=== PATIENT | female | born 1980 | race Caucasian/White ===

== ENCOUNTER 2024-08-20 18:20 | Emergency (ER) | payer MEDICAID, SELFPAY ==
[2024-08-20 18:21] VITALS: BP 129/91; PULSE 115; RESP 18; TEMP 37.3; O2SAT 96; BMI 23.5
--- NOTE | 2024-08-20 18:57 | ED.VIS.FEGU ---
HPI HPI - Female History of Present Illness Chief Complaint: Flank Pain PFSH PFSH Home Medications ?Medication ?Instructions ?Recorded ?Last Taken ?Type Saccharomyces boulardii PO 08/20/24 Unknown History [id number] carb-vit K 1 tab PO DAILY 08/20/24 Unknown History 18 mg iron-400 mcg-500 mg tablet (Women's Daily Formula) sulfamethoxazole 800 1 tab PO BID #14 tabs 08/20/24 Unknown Rx mg-trimethoprim 160 mg tablet (Bactrim DS) Allergy/AdvReac Type Severity Reaction Status Date / Time latex Allergy Itching Verified 08/20/24 18:21 Social History Smoking Status: Never smoker EXAM Physical Exam Const Vital Signs: 08/20/24 18:21 08/20/24 20:21 08/20/24 21:37 Temperature 99.1 F 99 F Temperature Source Oral Pulse Rate 115 H 83 82 Respiratory Rate 18 17 16 Blood Pressure 129/91 H 139/87 H 163/89 H Blood Pressure Mean 103 104 113 Pulse Ox 96 98 97 Oxygen Delivery Method Room Air Room Air MDM [facility] MDM Narrative Medical decision making narrative: HISTORY OF PRESENT ILLNESS: Chief complaint: Flank pain 43-year-old female presents with concern for left-sided flank pain that started Sunday. Notes she is on doxycycline and Azo from her prior infectious issue. Noted a temperature today of 103. Denies falls or trauma. Notes increased frequency of urination physic she has UTI. Denies history of kidney stones. Denies failure. History of connective tissue disorders or aneurysms REVIEW OF SYSTEMS: Pertinent positives: Flank pain, nausea, frequency Pertinent negatives: Vomiting PHYSICAL EXAM: Nursing triage notes reviewed, Vital signs reviewed Constitutional: please see mdm Lungs: Clear to auscultation, No wheezing or rales. No increased work of breathing, no conversational dyspnea, no accessory muscle use, no nasal flaring. No respiratory distress noted Heart: Regular rate and rhythm, No murmurs, No rubs and No gallops, 2+ distal pulses (radial, femoral, posterior tibial) in all extremities Abdomen: Soft, there is no tenderness, rigidity, rebound or guarding, no obvious peritoneal signs, no palpable pulsatile abdominal masses, no auscultated abdominal bruit : Left CVAT Extremities: No edema Skin: No rash or lesions noted MEDICAL DECISION MAKING: Chief Complaint: please see HPI External records reviewed: Reviewed prior imaging studies Factors affecting care: none Social determinants of health: none History obtained from others: none Consults: none [facility] Narrative: The patient was initially tachycardic otherwise afebrile saturating well on room air. Exam without left CVA tenderness. No signs of trauma. I considered the following differential diagnosis: Pyelonephritis, nephrolithiasis, AAA I obtained a broad lab and imaging workup to further elucidate etiology of patient's complaints I initially treated the patient with 1 L normal saline, 4 2 mg IV morphine, 4 mg IV Zofran ALL IMAGES (IF OBTAINED) HAVE BEEN PERSONALLY REVIEWED AND INTERPRETED BY MYSELF. CT scan abdomen pelvis showed no evidence of obvious AAA, nephrolithiasis CBC without leukocytosis, severe anemia, no thrombocytopenia. BMP without evidence of significant electrolyte abnormalities, no anion gap, no acute kidney injury. Urinalysis with evidence of urinary inflammation Urine culture pending. Patient's history and physical exam most consistent with likely pyelonephritis. Will send urine for culture and start the patient on Bactrim. On reevaluation patient heart rate improved from 115-83. Patient tolerated Bactrim here. The patient and/or family, caregivers express understanding. The patient and/or family, caregivers agrees with the plan. Shared decision making: I will have a discussion with the patient and or visitors regarding risk/benefits of further testing or admission. They will be made aware of of the risk/benefits inherent in this decision they will be given the opportunity to voice understanding. Total critical care time today provided was at least 0 minutes. This excludes separately billable procedures. Critical care time (if documented) is secondary to the patient having high probability of clinically significant/life threatening deterioration in the patient's condition which required my urgent intervention. Impression: 1. Acute flank pain 2. Acute pyelonephritis Dispo: Discharge home This note was generated with [employer] dictation software. It may contain incorrect words, spelling, and punctuation that were not noted in review of the chart prior to signing. Lab Data Labs: Laboratory Results - last 24 hr 08/20/24 08/20/24 18:45 19:20 WBC 9.5 RBC 4.25 Hgb 13.4 Hct 39.3 MCV 92.5 MCH 31.5 MCHC 34.1 RDW Std Deviation 42.2 RDW Coeff of Jael 12.5 Plt Count 270 MPV 9.6 Immature Gran % (Auto) 0.200 Neut % (Auto) 82.5 H Lymph % (Auto) 7.9 L Cobb % (Auto) 7.9 Eos % (Auto) 1.1 Baso % (Auto) 0.4 Absolute Neuts (auto) 7.8 H Absolute Lymphs (auto) 0.75 L Nucleated RBC % 0 Sodium 133 Potassium 3.5 Chloride 99 Carbon Dioxide 21.3 Anion Gap 13 BUN 10 Creatinine 0.73 Estim Creat Clear Calc 102.31 Est GFR (MDRD) Non-Af 107 BUN/Creatinine Ratio 14.2 Glucose 140 H Calcium 9.5 Urine Color Yellow Urine Clarity Cloudy Urine pH 6.0 Ur Specific Surveyor 1.020 Urine Protein 100 H Urine Glucose (UA) Normal Urine Ketones Negative Urine Occult Blood 25 H Urine Nitrite Negative Urine Bilirubin 1 H Urine Urobilinogen 1 H Ur Leukocyte Esterase 500 H Urine RBC 5-10 SEEN Urine WBC 25-50 SEEN Ur Squamous Epith Cells 10-25 SEEN Urine Bacteria 1+ Urine Mucus 2+ Urine Yeast RARE Radiography Diagnostic Testing: Clinical Impression(s) from Imaging Studies Abdomen/Pelvis CT 08/20/24 19:35 IMPRESSION: 12 mm right inferior pole calculus without hydronephrosis. Innumerable bilateral renal simple cysts and proteinaceous/hemorrhagic cysts, more so on the left. Several bilobar hepatic cysts. [facility] Triage Chief Complaint: Flank Pain ED Provider: Abdoul Lynch Dx/Rx/DC Orders Instructions: ED Pyelonephritis, Female (Adult) Prescriptions: New sulfamethoxazole-trimethoprim [Bactrim DS] 800-160 mg tablet 1 tab PO BID Qty: 14 0RF No Action Women's Daily Formula 18 mg iron-400 mcg-500 mg tablet 1 tab PO DAILY Saccharomyces boulardii [Daily Probiotic (S. boulardii)] PO Primary Care Provider: Care Physician,Liliane Primary Referrals: William Lopez MD [Med Staff - Critical Care Rn] - Activity Restrictions/Additional Instructions: Thank you for trusting us with your care today! Your labs images are consistent with likely UTI/kidney infection. Your CT scan did not show evidence of a kidney stone, vascular emergency or other intra-abdominal concerns. It did show known kidney and liver cysts. These are stable and are likely not causing your symptoms. Please take Tylenol (2 pills, 650 mg), ibuprofen (2 pills, 400 mg) every 6 hours as needed for pain and fever control. Please return to the emergency department if your symptoms change or worsen. Please follow with your primary care physician for further outpatient evaluation and management. Print Language: Yoruba Disposition Disposition: Home, Self Care Discharge Date/Time: 08/20/24 21:38
[2024-08-20] MEDS: Morphine 2 MG/ML Syringe IV (19:26)
[2024-08-20] MEDS: 0.9% Normal Saline (1000mL) 1,000 ML 999 ML IV (19:26)
[2024-08-20] MEDS: Ondansetron 4 MG/2 ML Vial IV (19:26)
--- NOTE | 2024-08-20 19:35 | CT_ITS ---
PROCEDURE: ABDOMEN/PELVIS WITHOUT CONT 08/20/2024 REASON FOR EXAM: KIDNEY STONE, LEFT FLANK PAIN TECHNIQUE: Abdomen and pelvis CT without intravenous contrast. Noncontrast technique limits evaluation of the abdominal and pelvic viscera. Coronal and Sagittal reconstruction series were provided. One or more dose reduction techniques were used (e.g., Automated exposure control, adjustment of the mA and/or kV according to patient size, use of iterative reconstruction technique). PATIENT PREPARATION: Per protocol ORAL CONTRAST TYPE: None. AMOUNT: mL COMPARISON: None FINDINGS: Lung bases: Unremarkable Liver: Innumerable bilobar simple cysts. Gallbladder: No ductal dilation. Gallbladder is unremarkable. Spleen: Normal size. Pancreas: Normal size. No surrounding inflammation. Adrenals: Unremarkable. Kidneys: Qoke-bgmsoec-zszn-right several simple and hemorrhagic/proteinaceous cysts. There is near complete replacement of the left renal parenchyma by several cysts. 12 mm right inferior pole calculus, without hydronephrosis. Bladder: Unremarkable. Reproductive Organs: No pelvic mass. Bowel: Stomach is unremarkable. No bowel dilation or wall thickening. Moderate colonic stool. Appendix: Appendix is normal. Lymph nodes: Unremarkable. Vasculature: The abdominal aorta and IVC contours are normal. Noncontrast technique limits evaluation. Peritoneum / Retroperitoneum: No ascites. No pneumoperitoneum. Bones: Unremarkable. Soft tissue: No focal soft tissue abnormality. CT/Abdomen/Pelvis without Cont IMPRESSION: 12 mm right inferior pole calculus without hydronephrosis. Innumerable bilater al renal simple cysts and proteinaceous/hemorrhagic cysts, more so on the left. Several bilobar hepatic cysts. Reading Location: [facility]
[2024-08-20 19:41] LABS: Absolute Lymphocyte Count 0.75 X10^3/uL (0.83-4.51); Absolute Neutrophil Count 7.8 X10^3/uL (2.0-7.7); Basophil# 0.04 X10^3/uL; Basophil% 0.4 % (0-1); Eosinophils% 1.1 % (0-5); Hematocrit 39.3 % (37-47); Hemoglobin 13.4 g/dL (12.0-15.0); Lymphocyte # 0.75 X10^3/ul (0.83-4.51); Lymphocyte % 7.9 % (19-41); Mean Corp Hgb Conc 34.1 g/dL (32-36); Mean Corpuscular Hgb 31.5 pg (27.0-32.0); Mean Corpuscular Volume 92.5 fL (81-99); Mean Platelet Vol. 9.6 fl (6.2-12.0); Monocyte# 0.75 X10^3/uL; Monocyte% 7.9 % (0-10); NRBC Flagged by Analyzer 0 % (0-5); Neutrophil # 7.79 X10^3/uL (2.7-7.7); Neutrophil % 82.5 % (47-70); Platelet Count 270 K/mm3 (150-450); RBC Distribution Width CV 12.5 % (11.6-14.6); RBC Distribution Width SD 42.2 fl (35.1-43.9); Red Blood Count 4.25 M/mm3 (4.2-5.4); White Blood Count 9.5 K/mm3 (4.4-11.0)
[2024-08-20 19:43] LABS: Color, Urine Yellow (Yellow); Glucose, Dipstick Normal (Normal); Ketone-Dipstick Negative (Negative); Leukocyte Esterase-Dipstick 500 /ul (Negative); Nitrite-Dipstick Negative (Negative); Occult Blood-Urine 25 /ul (Negative); Protein-Dipstick 100 mg/dl (Negative); Urine Clarity Cloudy (Clear); Urine Urobilinogen 1 mg/dl (Normal)
[2024-08-20 19:46] LABS: Urine Bilirubin Dipstick 1 mg/dL (Negative)
[2024-08-20 20:01] LABS: Anion Gap 13 (5-15); BUN 10 mg/dL (4-19); BUN/Creat Ratio 14.2 RATIO (10-20); Calcium,Total 9.5 mg/dL (7.6-11.0); Carbon Dioxide 21.3 mmol/L (21.0-32.0); Chloride 99 mmol/L (98-108); Creatinine, Serum 0.73 mg/dL (0.70-1.20); EST Glomerular Filtration Rate 107 (>60); Estimated Creatinine Clearance 102.31 ml/min (50-250); Glucose 140 mg/dL (70-99); Potassium 3.5 mmol/L (3.3-5.1); Sodium Level 133 mmol/L (133-145)
[2024-08-20 20:21] VITALS: BP 139/87; PULSE 83; RESP 17; O2SAT 98
[2024-08-20 20:29] LABS: White Blood Cells 25-50 SEEN /hpf (0-5)
[2024-08-20 20:30] LABS: Red Blood Cells-Urine 5-10 SEEN /hpf (0-5); Squamous Epithelial Cells - UA 10-25 SEEN /hpf (5-10)
[2024-08-20 20:31] LABS: Mucous, Urine 2+ /hpf (<or=2+)
[2024-08-20 20:32] LABS: Yeast-Urine RARE /hpf (None Seen)
[2024-08-20 20:33] LABS: Bacteria 1+ /hpf (None Seen)
[2024-08-20] MEDS: Morphine 4 MG/ML Syringe IV (21:33)
[2024-08-20] MEDS: Smz/Tmp Ds Tablet 1 TABLET PO (21:33)
[2024-08-20 21:37] VITALS: BP 163/89; PULSE 82; RESP 16; TEMP 37.2; O2SAT 97
== END 2024-08-20 21:38 | disposition home or self-care (01) ==
PROVIDERS: Emergency Provider Emergency Medicine; Visit Provider Emergency Medicine
DX: N10 Acute pyelonephritis (principal)
CPT/HCPCS: 74176; 80048; 81001; 85025; 96361; 96374; 96375; 96376; 99283; A4216; J2405

== ENCOUNTER 2024-08-21 18:31 | Emergency (ER) | payer MEDICAID, SELFPAY ==
[2024-08-21 18:32] VITALS: BP 127/80; PULSE 112; RESP 18; TEMP 36.6; O2SAT 100; BMI 24.7
== END 2024-08-21 19:28 | disposition left against medical advice (07) ==
LOC: ED 19:30
DX: Z53.21 Procedure and treatment not carried out due to patient leaving prior to being seen by health care provider (principal)